=== PATIENT | female | born 1995 | race African-American/Black ===

== ENCOUNTER 2016-10-23 16:06 | Emergency (ER) | payer BC, OTHER ==
[~2016-10-23] VITALS: Ht 170.2 cm; Wt 90.7 kg
[~2016-10-23 16:06] MED LIST: NORCO 5-325 TA1 EACH PO
[2016-10-23 16:40] LABS: URINE BILIRUBIN NEGATIVE (Negative); URINE BLOOD NEGATIVE (Negative); URINE COLOR YELLOW; URINE GLUCOSE-RANDOM* NEGATIVE (Negative); URINE KETONES NEGATIVE (Negative); URINE NITRITE NEGATIVE (Negative); URINE PROTEIN (DIPSTICK) NEGATIVE (Negative)
[2016-10-23 19:02] VITALS: BP 157/94
[2016-10-24 17:09] LABS: CHLAMYDIA TRACHOMATIS-PCR Positive (Negative); NEISSERIA GONORRHEA-PCR Negative (Negative)
== END 2016-10-23 19:04 | disposition home or self-care (01) ==
LOC: ER 16:06
PROVIDERS: Physician Assistant
DX: O20.0 Threatened abortion (principal); Z3A.00 Weeks of gestation of pregnancy not specified

== ENCOUNTER 2017-05-03 00:52 | Emergency (ER) | payer BC, OTHER ==
[~2017-05-03] VITALS: Ht 170.2 cm; Wt 99.8 kg
--- NOTE | ~2017-05-03 | EKG ---
[address] [address] ELECTROCARDIOGRAM REPORT Name: RODNEY VAN [id number] Admission: 05/03/17 Attend Phys: Discharge: 05/03/17 Date of : [birth year] Report #: [id number] THIS REPORT FOR: //name// [facility] ED Test Date: 2017-05-03 Test Time: 01:09:56 Pat Name: RODNEY VAN Department: Room: Gender: F Jack Prizer: BRAEDEN : 1995 Requested By: Michael Strong Order Number: [id number] MD: Gus Islas Measurements Intervals [place] Rate: 156 P: 72 ND: 92 QRS: 68 QRSD: 73 T: -29 QT: 308 QTc: 496 Interpretive Statements Sinus tachycardia Consider right atrial enlargement Borderline T abnormalities, inferior leads Baseline wander in lead(s) V1 No previous ECG available for comparison Electronically Signed On 05-03-2017 9:59:11 SWAGE TENDER by Gus Islas [email or web address] <ELECTRONICALLY SIGNED> By: Gus Islas MD 05/03/17 0959 010 010 Gus Islas MD /SEAN
[~2017-05-03 00:52] MED LIST changes: +KEFLEX500 M1 PO; +PRENATAL TABLE1 EAC2 PO
[2017-05-03] MEDS ORDERED: KEFLEX500 M1 PO (03:22)
[2017-05-03 04:09] LABS: HEMOGLOBIN 11.7 gm/dL (12.0-15.0); MCH 26.4 pg (26.0-34.0); MCHC 32.6 g/dL (28.0-37.0); MCV 81.1 fL (80.0-100.0); RBC 4.44 mil/uL (4.20-5.00); RDW 15.5 % (10.5-14.5); WBC 11.8 thou/uL (4.0-11.0)
[2017-05-03 04:12] LABS: CALCIUM 9.6 mg/dL (8.5-10.1); CREATININE 0.7 mg/dL (0.6-1.0); POTASSIUM 4.1 mmol/L (3.5-5.1)
[2017-05-03 05:27] VITALS: BP 136/90
== END 2017-05-03 05:29 ==
LOC: ER 00:52
PROVIDERS: Emergency Medicine
DX: O98.813 Other maternal infectious and parasitic diseases complicating pregnancy, third trimester (principal); A41.9 Sepsis, unspecified organism; N76.4 Abscess of vulva; Z3A.32 32 weeks gestation of pregnancy

== ENCOUNTER 2018-02-23 18:34 | Emergency (ER) | payer BC, OTHER ==
[~2018-02-23] VITALS: Ht 170.2 cm; Wt 98.0 kg
[2018-02-23] MEDS ORDERED: IBUPROFEN 200200 M1 PO (18:55)
[2018-02-23 19:15] LABS: ABSOLUTE NEUTROPHILS 5.4 thou/uL (1.4-8.2); BASOPHILS 0.5 % (0.0-2.0); EOSINOPHILS 0.5 % (0.0-3.0); HEMATOCRIT 40.3 % (37.0-47.0); HEMOGLOBIN 13.7 gm/dL (12.0-15.0); MCH 26.8 pg (26.0-34.0); MCV 78.8 fL (80.0-100.0); MONOCYTES 3.9 % (1.0-8.0); PLATELET COUNT 302 thou/uL (150-400); POLYS 78.1 % (36.0-66.0); RBC 5.11 mil/uL (4.20-5.00); RDW 14.8 % (10.5-14.5); WBC 6.9 thou/uL (4.0-11.0)
[2018-02-23 19:25] LABS: CALCIUM 9.5 mg/dL (8.5-10.1); POTASSIUM 3.6 mmol/L (3.5-5.1)
[2018-02-23 19:31] LABS: ALBUMIN 3.8 g/dL (3.4-5.0); TOTAL BILIRUBIN 0.9 mg/dL (<0.1-1.0); TOTAL PROTEIN 8.6 g/dL (6.4-8.2)
[2018-02-23] MEDS ORDERED: ONDANSETRON HCL4 M2 PO (19:41)
[2018-02-23 19:56] VITALS: BP 127/97
== END 2018-02-23 20:21 | disposition home or self-care (01) ==
LOC: ER 18:34
PROVIDERS: Emergency Medicine
DX: R11.2 Nausea with vomiting, unspecified (principal); R51 Headache; R53.83 Other fatigue

== ENCOUNTER 2018-06-01 21:48 | Emergency (ER) | payer BC, OTHER ==
[~2018-06-01] VITALS: Ht 170.2 cm; Wt 98.0 kg
[~2018-06-01 21:48] MED LIST changes: +IBUPROFEN 200200 M1 PO; +ONDANSETRON HCL4 M2 PO
[2018-06-01 21:50] VITALS: BP 154/82
[2018-06-01] MEDS ORDERED: DIPHENHIST50 MG PO (22:28)
== END 2018-06-01 22:47 | disposition home or self-care (01) ==
LOC: ER 21:48
DX: L50.9 Urticaria, unspecified (principal)

== ENCOUNTER 2018-07-04 09:01 | Emergency (ER) | payer BC, OTHER ==
[~2018-07-04] VITALS: Ht 170.2 cm; Wt 90.7 kg
[~2018-07-04 09:01] MED LIST changes: +DIPHENHIST50 MG PO
[2018-07-04 09:02] VITALS: BP 130/97
[2018-07-04 09:18] LABS: URINE BILIRUBIN NEGATIVE (Negative); URINE BLOOD 1+ (Negative); URINE CLARITY CLEAR; URINE COLOR YELLOW; URINE GLUCOSE-RANDOM* 3+ (Negative); URINE KETONES 2+ (Negative); URINE LEUKOCYTES-REFLEX TRACE (Negative); URINE NITRITE-REFLEX NEGATIVE (Negative); URINE PROTEIN (DIPSTICK) 2+ (Negative); URINE SPECIFIC GRAVITY >= 1.030 (1.005-1.035); URINE UROBILINOGEN 0.2 E.U./dl (0.2-1.0)
[2018-07-04 09:29] LABS: CASTS None Seen /LPF (None Seen); SQUAMOUS >10 Many /LPF (0-3)
[2018-07-04 09:30] LABS: AMORPHOUS URATES Moderate /LPF (None Seen); BACTERIA-REFLEX None Seen /HPF (None Seen); URINE RBC 3-10 Few /HPF (0-2)
[2018-07-04] MEDS ORDERED: DIFLUCAN150 M1 PO (09:42)
== END 2018-07-04 09:53 | disposition home or self-care (01) ==
LOC: ER 09:01
PROVIDERS: Emergency Medicine
DX: B37.3 Candidiasis of vulva and vagina (principal)

== ENCOUNTER 2018-07-14 16:29 | Inpatient (IN) | payer BC, OTHER ==
[2018-07-14] VITALS (21 sets, daily range): BP systolic 114–151; BP diastolic 67–93
[~2018-07-14] VITALS: Ht 170.2 cm; Wt 92.5 kg
[~2018-07-14 16:29] MED LIST changes: +DIFLUCAN150 M1 PO
[2018-07-14 16:44] LABS: URINE BLOOD TRACE (Negative); URINE CLARITY CLEAR; URINE COLOR YELLOW; URINE GLUCOSE-RANDOM* 3+ (Negative); URINE KETONES 3+ (Negative); URINE LEUKOCYTES NEGATIVE (Negative); URINE NITRITE NEGATIVE (Negative); URINE PROTEIN (DIPSTICK) 2+ (Negative); URINE SPECIFIC GRAVITY >= 1.030 (1.005-1.035); URINE UROBILINOGEN 0.2 E.U./dl (0.2-1.0)
[2018-07-14 16:45] LABS: ICTOTEST (BILI CONFIRMATORY) Negative (Negative); URINE BILIRUBIN NEGATIVE (Negative)
[2018-07-14 16:53] LABS: CASTS None Seen /LPF (None Seen); CRYSTALS None Seen /LPF (None Seen); SQUAMOUS 4-10 Moderate /LPF (0-3)
[2018-07-14 16:54] LABS: YEAST Present (None Seen)
[2018-07-14 17:00] LABS: URINE RBC 0-2 Rare /HPF (0-2); URINE WBC 0-5 Rare /HPF (0-5)
[2018-07-14 17:04] LABS: ABSOLUTE NEUTROPHILS 3.1 thou/uL (1.4-8.2); BASOPHILS 0.8 % (0.0-2.0); HEMATOCRIT 50.7 % (37.0-47.0); HEMOGLOBIN 17.4 gm/dL (12.0-15.0); MCH 27.1 pg (26.0-34.0); MCHC 34.2 g/dL (28.0-37.0); MCV 79.1 fL (80.0-100.0); MONOCYTES 8.6 % (1.0-8.0); PLATELET COUNT 340 thou/uL (150-400); POLYS 39.6 % (36.0-66.0); RBC 6.41 mil/uL (4.20-5.00); RDW 15.4 % (10.5-14.5); WBC 7.8 thou/uL (4.0-11.0)
[2018-07-14 17:21] LABS: CALCIUM 9.9 mg/dL (8.5-10.1); CREATININE 0.9 mg/dL (0.6-1.0); POTASSIUM 3.9 mmol/L (3.5-5.1)
[2018-07-14 17:25] LABS: ALBUMIN 3.9 g/dL (3.4-5.0); TOTAL BILIRUBIN 1.2 mg/dL (<0.1-1.0); TOTAL PROTEIN 8.2 g/dL (6.4-8.2)
--- NOTE | 2018-07-14 19:36 | NUR ---
PT ARRIVED AT 1950 FROM ED VIA STRETCHER IN STABLE CONDITION. PT PLACED ON TELEMETRY AND ORIENTED TO UNIT. WILL ADMIT PT TO UNIT.
[2018-07-14] MEDS ORDERED: IBUPROFEN 400400 M2 PO (20:16)
[2018-07-14 20:22] LABS: MAGNESIUM 1.5 mg/dL (1.8-2.4); PHOSPHORUS 2.5 mg/dL (2.5-4.9)
[2018-07-14 20:23] LABS: ALBUMIN 3.1 g/dL (3.4-5.0); CALCIUM 8.1 mg/dL (8.5-10.1); CREATININE 0.8 mg/dL (0.6-1.0); PHOSPHORUS 2.5 mg/dL (2.5-4.9); POTASSIUM 3.3 mmol/L (3.5-5.1)
[2018-07-15] VITALS (24 sets, daily range): BP systolic 104–169; BP diastolic 55–108
[2018-07-15 00:41] LABS: ALBUMIN 3.1 g/dL (3.4-5.0); CALCIUM 7.7 mg/dL (8.5-10.1); CREATININE 0.7 mg/dL (0.6-1.0); MAGNESIUM 1.9 mg/dL (1.8-2.4); PHOSPHORUS 1.6 mg/dL (2.5-4.9); POTASSIUM 3.8 mmol/L (3.5-5.1)
[2018-07-15 04:53] LABS: ALBUMIN 2.9 g/dL (3.4-5.0); CALCIUM 7.5 mg/dL (8.5-10.1); CREATININE 0.7 mg/dL (0.6-1.0); MAGNESIUM 1.8 mg/dL (1.8-2.4); PHOSPHORUS 2.3 mg/dL (2.5-4.9); POTASSIUM 3.8 mmol/L (3.5-5.1)
--- NOTE | 2018-07-15 06:23 | NUR ---
PT CURRENTLY RESTING IN BED. PT HAD NO C/O PAIN THROUGHOUT SHIFT. PT SR ON MONITOR WITH OCCASIONAL 1ST DEGREE AND PVCs. PT RA ON MONITOR BUT HAS MOMENTS OF DESAT TO 88% BUT POPS BACK UP LIKE SLEEP APNEA. PT CONTINUES ON INSULIN GTT PER PROTOCOL AND NEXT RENAL AND MAG CHECK IS 0800. PT UP STANDBY TO TOILET.
[2018-07-15 08:22] LABS: CHOLESTEROL 142 mg/dL (<200); HDL CHOLESTEROL 22 mg/dL (>40); LDL CHOLESTEROL 100 mg/dL (<100); TC:HDL 6.5 Ratio (Not establshd); TRIGLYCERIDE 102 mg/dL (<150); VLDL 20 mg/dL (<40)
[2018-07-15 08:24] LABS: SERUM ASSESSMENT Clear
[2018-07-15 10:40] LABS: CREATININE 0.6 mg/dL (0.6-1.0); POTASSIUM 3.6 mmol/L (3.5-5.1)
[2018-07-15 11:54] LABS: CALCIUM 7.9 mg/dL (8.5-10.1); CREATININE 0.5 mg/dL (0.6-1.0); MAGNESIUM 1.6 mg/dL (1.8-2.4); PHOSPHORUS 1.7 mg/dL (2.5-4.9); POTASSIUM 3.3 mmol/L (3.5-5.1)
--- NOTE | 2018-07-15 12:41 | NUR ---
CM ASSESSMENT: CASE OPENED FOR DC PLANNING, NURSES STATE VERBALIZATION OF SPOUSAL ABUSE. PT ADMITTED THRU ER AND DX WITH NEW DM, DKA. CLINICAL INFO REVIEWED, MET WITH PT. PT LIVES WITH SPOUSE JAM[place] IN [place] AND THEY HAVE 14 MONTH SON. PT IS INDEPENDENT WITH ADLS, NO CURRENTLY WORKING. PT REPORTS PHYSICAL AND VERBAL SPOUSAL ABUSE ABOUT A MONTH AGO, AT WHICH TIME PT CALLED POLICE AFTER PT HAD LEFT FOR WORK AND OBTAINED A RESTRAINING ORDER. PT [facility], BUT ULTIMATELY WORKED THINGS OUT WITH SPOUSE. PT DECISION TO HAVE SPOUSE RETURN HOME AND LIFTED RESTRAINING ORDER 2 DAYS AGO. PT INDICATES SHE FEELS SAFE RETURNING HOME WITH SPOUSE AT DISCHARGE. SPOUSE IS CARING FOR SON AT PRESENT. VERIFIED PT HAS [facility] CONTACT NUMBER. PT WITHOUT PCP AND ENCOURAGED HER TO GO TO [facility]REFERRED [facility] TO CHOOSE IN NETWORK PCP AND [employer] DEVELOPER OPTIONS. ALSO PROVIDED RESOURCES FOR [facility] OFFICES OF [facility] AND [facility]. WILL FOLLOW.
--- NOTE | 2018-07-15 16:36 | EKG ---
[address] [address] ELECTROCARDIOGRAM REPORT Name: RODNEY SANTIAGO Room #: 243-P ADM IN M.R.#: [id number] ������������������ Admission: 07/14/18 ������������������ Attend Phys: Crescencio Oviedo MD Discharge: ������������������ Date of : [birth year] Report #: [id number] ����������������������������������������������������������������� [id number] THIS REPORT FOR: //name// [facility] ED Test Date: 2018-07-14 Test Time: 16:51:06 Pat Name: RODNEY SANTIAGO Department: Room: [facility] Gender: F Timber Watchman: YAYA : 1995 Requested By: Smith Luong Order Number: [id number] MD: Gus Islas Measurements Intervals [place] Rate: 126 P: 88 [place]: 155 QRS: 96 QRSD: 67 T: 51 QT: 288 QTc: 417 Interpretive Statements Sinus tachycardia Borderline right axis deviation Compared to ECG 05/03/2017 01:09:56 T-wave abnormality no longer present Electronically Signed On 07-15-2018 16:36:15 MANUAL TESTER by Gus Islas [email or web address] ��������������������������������������������� <ELECTRONICALLY SIGNED> ���������������������������������������� By: Gus Islas MD ��������������������������������������������� 07/15/18 1636 165 165 Gus Islas MD /EPI
[2018-07-15 17:17] LABS: ALBUMIN 2.8 g/dL (3.4-5.0); CALCIUM 8.1 mg/dL (8.5-10.1); CREATININE 0.7 mg/dL (0.6-1.0); MAGNESIUM 1.8 mg/dL (1.8-2.4); PHOSPHORUS 1.4 mg/dL (2.5-4.9); POTASSIUM 3.6 mmol/L (3.5-5.1)
--- NOTE | 2018-07-15 17:34 | NUR ---
PT IS ALERT AND ORIENTED X4. PT IS ON A INUSLIN DRIP. [facility] INVOLVED AND MANAGING BLOOD SUGARS. PT IS IN THE ICU. LUNGS ARE CLEAR. SINUS TACHYCARDIA ON MONITOR. BOWEL SOUNDS ACITVE. EATTING A 1600 BRIANNA DIET. TOLERATING WELL. WILL CONTINUE TO MANAGE DRIP AND INSULIN PER DR. RASMUSSEN. DR. MADRID SAW PT TODAY AND ROUNDED ON PT. PT DIDNT TOLERATE IV POTASSIUM SO PO ORDERED AND GIVEN TO PT IN REPLACEMENT. WILL CONTINUE TO ASSESS AND MONITOR PER NURSING. UP TO BEDSIDE AND BATH DONE AT SINK .
[2018-07-16] VITALS (14 sets, daily range): BP systolic 106–162; BP diastolic 50–111
[2018-07-16 01:06] LABS: GLYCOHEMOGLOBIN (HGB A1C) 11.5 % (4.8-5.6)
--- NOTE | 2018-07-16 03:30 | NUR ---
PT IS PROGRESSING WITH DKA PROTOCOL UNDER . BS HAVE BEEN IMPROVING SINCE CHANGING TO 1/2 NS. PT STILL IN HOURLY BS CHECKS WITH 0300 AM CHECK UNDER 100. INSULIN DRIP ON HOLD UNTIL PT'S BS IS OVER 150 WHICH THEN DRIP CAN BE RESTARTED. DR. RASMUSSEN ORDERS TO CALL WITH BS AND UPDATE PT STATUS TO HIM THIS AM @730 AND NOON & 1700 CALL HIM VIKY FOR BS/INSULIN ORDERS. ASSESSMENT CHARTED. CALL LIGHT IN REACH. CONTINUE WITH PLAN OF CARE.
[2018-07-16 06:11] LABS: ABSOLUTE NEUTROPHILS 2.5 thou/uL (1.4-8.2); BASOPHILS 0.8 % (0.0-2.0); EOSINOPHILS 2.8 % (0.0-3.0); HEMATOCRIT 38.6 % (37.0-47.0); LYMPHOCYTES 46.3 % (24.0-44.0); MCH 26.6 pg (26.0-34.0); MCHC 33.9 g/dL (28.0-37.0); MCV 78.5 fL (80.0-100.0); POLYS 41.1 % (36.0-66.0); RBC 4.92 mil/uL (4.20-5.00); RDW 15.2 % (10.5-14.5); WBC 6.2 thou/uL (4.0-11.0)
[2018-07-16 06:13] LABS: HEMOGLOBIN 13.1 gm/dL (12.0-15.0); PLATELET COUNT 232 thou/uL (150-400)
[2018-07-16 08:03] LABS: ALBUMIN 2.9 g/dL (3.4-5.0); CALCIUM 8.5 mg/dL (8.5-10.1); CREATININE 0.6 mg/dL (0.6-1.0); PHOSPHORUS 3.1 mg/dL (2.5-4.9); POTASSIUM 3.3 mmol/L (3.5-5.1); TOTAL BILIRUBIN 1.9 mg/dL (<0.1-1.0); TOTAL PROTEIN 6.2 g/dL (6.4-8.2)
--- NOTE | 2018-07-16 10:04 | NUR ---
ASSUMED CARE OF PT AT APPROX 0700. PT IS ALERT AND ORIENTED X4, MONITORED ON TELE AND ABLE TO MAINTAIN 02 SAT >90 ON RA. PT REMAINS ON INSULIN GTT AT SHIFT CHANGE. DANIELLE WAS DC'D BY HOSPITALIST. CALLED DR RASMUSSEN TO MAKE AWARE, STATED OK, GAVE ORDER FOR ONE TIME INSULIN DOSE AND TO REMAIN WITH CALLS QID WITH ALL INSULIN CHECKS. RECIEVED ORDER FOR TRANSER TO M/S UNIT. BED CALLED, REPORT CALLED TO RECIEVING RN. PT UPDATED ON POC, AND COMMUNICATES UNDERSTANDING. WILL CONTINUE TO MONITOR.
--- NOTE | 2018-07-16 13:15 | NUR ---
RECIEVED CALL FROM DR RASMUSSEN ABOUT PATIENT THIS NURSE LET HIM KNOW THAT DR MADRID WAS GOING TO MANAGE BLOOD SUGARS AND S/S INSULINTHAT HIS ANSWERING SERVICE WAS CALLED AROUND 11:00 MESSAGE LEFT.
--- NOTE | 2018-07-16 14:34 | HC ---
[facility] [address] [place] [address] CONSULTATION Name: RODNEY SANTIAGO Room #: 417-I ADM IN Mauro#: [id number] Admission: 07/14/18 ������������������ Attend Phys: Crescencio Oviedo MD Discharge: ������������������ Date of : [birth year] Report #: [id number] THIS REPORT FOR: //name// CC: [facility] physician/PCP Crescencio Oviedo ENDOCRINE CONSULTATION Patient of Dr. Oviedo's, [facility] ICU. SUBJECTIVE: A 23-year-old black female admitted for new onset diabetes mellitus and associated complaints. The patient is a relatively poor historian. She states she was diagnosed with gestational diabetes during a recent , which ended 14 months ago. The patient was treated with diet control alone. She is to receive no diabetes care or interventions since that time and has had no medical evaluation. She has not monitored her glucose and has no information regarding glucose control, etc. Several weeks ago, she developed polyuria and polydipsia. Over the past 24 hours prior to admission, she developed fatigue, weakness and presented to the Emergency Room where she was found to be in early ketoacidosis with moderate hyperglycemia. She was begun on limited fluids and IV insulin as well as glucose and potassium supplementation. The patient denies any recent infections, trauma, corticosteroids or other precipitating factors. Otherwise, her limited available history is essentially as per prior dictations. OBJECTIVE: LABORATORY DATA: Hemoglobin A1c is pending. Glucoses are as per charts. Potassium and phosphorus are diminished, but being repleted. PHYSICAL EXAMINATION: GENERAL: Well-nourished, well-developed, obese 23-year-old black female in no acute distress. NEUROLOGIC: The patient is alert and oriented x 3. VITAL SIGNS: She is afebrile, heart rate 93 and regular, blood pressure 130/80. Height is reported to be 5 feet 7 inches, weight approximately 210 pounds. SKIN: Warm and moist with decreased turgor. The remainder of the exam is essentially within normal limits and as per prior notes. IMPRESSION: 1. New onset diabetes, out of control with ketoacidosis. The patient had gestational diabetes over 1 year ago with no subsequent medical evaluation and might have been hyperglycemic continuously since that time. 2. Severe dehydration with hypokalemia and hypophosphatemia. PLAN: 1. We will evaluate prior controlled hemoglobin A1c and monitor endogenous insulin secretion with C-peptide; however, this could be suppressed by acute glucose toxicity. [address] [address] CONSULTATION Name: RODNEY SANTIAGO Room #: 417-I [facility] IN M.Anne.#: [id number] Admission: 07/14/18 ������������������ Attend Phys: Crescencio Oviedo MD Discharge: ������������������ Date of : [birth year] Report #: [id number] 2. We will institute vigorous hydration. Meanwhile, we will taper glucose infusion as the patient is able to return to oral feeding on an appropriate caloric restriction diet. The patient will receive instruction in that diet and will need full outpatient diabetes education after dismissal. 3. We will initiate subQ insulin as the patient initiates oral intake and we will gradually wean the patient off of frequent monitoring and IV insulin as possible. Meanwhile, we will monitor and replace potassium, phosphorus and other parameters as needed. Thank you very much for this consultation. I will continue to follow and treat with you for diabetes management. ��������������������������������������������� <ELECTRONICALLY SIGNED> ���������������������������������������� By: Oleg De Santiago MD ��������������������������������������������� 07/16/18 1434 1959 0121 Oleg De Santiago MD /nt
--- NOTE | 2018-07-16 19:28 | NUR ---
PT AND HER BELONGINGS MOVED TO ROOM 356. REPORT GIVEN TO GUERDA HER NOC NURSE.
--- NOTE | 2018-07-17 04:52 | NUR ---
ASSUMED CARE OF PATIENT AT 1900. VSS, AFEBRILE. DIABETES EDUCATION GIVEN, WILL NEED MORE. UP AD HUSSAIN TO BATHROOM, CONCERNCED ABOUT CONSTIPATION. COLACE ORDERED AND GIVEN. STATES IV IS IRRITATING HER. NEW ONE STARTED IN LEFT AC. MONITORING BLOOD SUGARS, PROGRESSING TOWARDS POC GOALS.
[2018-07-17] MEDS ORDERED: FLUCONAZOLE 10100 MG PO (11:04)
[2018-07-17] MEDS ORDERED: FLORANEX GRANU1 EACH PO (11:04)
[2018-07-17] MEDS ORDERED: METRONIDAZOLE500 M4 PO (11:04)
[2018-07-17] MEDS ORDERED: LEVAQUIN 500 M500 M1 PO (11:04)
[2018-07-17] MEDS ORDERED: K-DUR 20 MEQ T20 MEQ PO (11:04)
[2018-07-17] MEDS ORDERED: NOVOLOG100 UNIT/1 SUBQ (11:04)
[2018-07-17] MEDS ORDERED: COLACE 100 MG100 MG PO (11:04)
[2018-07-17 12:29] VITALS: BP 133/88
[2018-07-17 12:33] VITALS: BP 133/88
[2018-07-17 13:33] VITALS: BP 133/88
[2018-07-17 13:37] VITALS: BP 133/88
[2018-07-17 13:38] VITALS: BP 133/88
[2018-07-17 13:52] VITALS: BP 133/88
--- NOTE | 2018-07-17 15:01 | NUR ---
PT INSTRUCTIONS GIVEN REGARDING BLOOD SUGAR TESTING AND INSULIN ADMINISTRATION. WILL PURCHASE A GLUCOMETER TODAY AND FELIX [facility]HU WILL FOLLOW UP TOMORROW..ADVISED TO MAKE APPOINTMENT VIKY ESCALANTE/AIDA FOR PCP AND DR RASMUSSEN FOR ADMINISTRATIVE RECEPTIONIST..
== END 2018-07-17 15:11 | disposition home health service (06) | DRG 638 ==
LOC: ER 16:29 → EROBS 17:55 → ICU 17:55 → 4E 07-16 10:14 → 3W 07-16 19:08
PROVIDERS: Emergency Medicine; ADMIT Internal Medicine
DX: E10.10 Type 1 diabetes mellitus with ketoacidosis without coma (principal); N39.0 Urinary tract infection, site not specified; B37.9 Candidiasis, unspecified; A59.9 Trichomoniasis, unspecified; E66.9 Obesity, unspecified; I10 Essential (primary) hypertension; E10.65 Type 1 diabetes mellitus with hyperglycemia; E86.0 Dehydration; E87.6 Hypokalemia; E83.39 Other disorders of phosphorus metabolism; Z68.31 Body mass index [BMI] 31.0-31.9, adult; Z91.19 Patient's noncompliance with other medical treatment and regimen; Z83.3 Family history of diabetes mellitus
CPT/HCPCS: 10078; 10203; 10779

== ENCOUNTER 2018-08-04 13:28 | Emergency (ER) | payer BC, OTHER ==
[~2018-08-04] VITALS: Ht 170.2 cm; Wt 95.3 kg
--- NOTE | ~2018-08-04 | EKG ---
[address] [address] ELECTROCARDIOGRAM REPORT Name: RODNEY SANTIAGO Room #: [facility] M.R.#: [id number] ������������������ Admission: ������������������ Attend Phys: Discharge: ������������������ Date of : [birth year] Report #: [id number] ����������������������������������������������������������������� [id number] THIS REPORT FOR: //name// [facility] ED Test Date: 2018-08-04 Test Time: 13:37:15 Pat Name: RODNEY SANTIAGO Department: Room: Gender: F Technical Writer: RONAK : 1995 Requested By: Halley Ingram Order Number: [id number] MD: Measurements Intervals [place] Rate: 130 P: 73 [place]: 126 QRS: 81 QRSD: 75 T: 74 QT: 412 QTc: 606 Interpretive Statements Sinus tachycardia LAE, consider biatrial enlargement Prolonged QT interval Compared to ECG 07/14/2018 16:51:06 Prolonged QT interval now present [email or web address] ��������������������������������������������� ���������������������������������������� By: ��������������������������������������������� 36 1337 Maximo Marsh MD /EPI
[~2018-08-04 13:28] MED LIST changes: +COLACE 100 MG100 MG PO; +FLORANEX GRANU1 EACH PO; +FLUCONAZOLE 10100 MG PO; +IBUPROFEN 400400 M2 PO; +K-DUR 20 MEQ T20 MEQ PO; +LEVAQUIN 500 M500 M1 PO; +METRONIDAZOLE500 M4 PO; +NOVOLOG100 UNIT/1 SUBQ
[2018-08-04 13:57] LABS: BASOPHILS 0.7 % (0.0-2.0); EOSINOPHILS 2.2 % (0.0-3.0); HEMATOCRIT 43.2 % (37.0-47.0); HEMOGLOBIN 14.5 gm/dL (12.0-15.0); LYMPHOCYTES 47.3 % (24.0-44.0); MCH 27.1 pg (26.0-34.0); MCHC 33.6 g/dL (28.0-37.0); MCV 80.8 fL (80.0-100.0); MONOCYTES 6.3 % (1.0-8.0); PLATELET COUNT 269 thou/uL (150-400); POLYS 43.5 % (36.0-66.0); RBC 5.34 mil/uL (4.20-5.00); RDW 15.8 % (10.5-14.5); WBC 4.6 thou/uL (4.0-11.0)
[2018-08-04 14:05] LABS: ANION GAP 13 mmol/L (7-16); BUN 12 mg/dL (7-18); CALCIUM 9.3 mg/dL (8.5-10.1); CHLORIDE 98 mmol/L (98-107); CO2 22 mmol/L (21-32); CREATININE 0.8 mg/dL (0.6-1.0); GLUCOSE 247 mg/dL (74-106); SODIUM 133 mmol/L (136-145)
[2018-08-04 14:14] LABS: ALBUMIN 3.7 g/dL (3.4-5.0); SGOT 16 U/L (15-37); SGPT 27 U/L (30-65); TOTAL BILIRUBIN 1.3 mg/dL (<0.1-1.0); TROPONIN-I <0.06 ng/mL (<0.06)
[2018-08-04] MEDS ORDERED: MOBIC7.5 MG PO (15:35)
[2018-08-04 15:46] VITALS: BP 124/84
--- NOTE | 2018-08-05 07:50 | EKG ---
[address] [address] ELECTROCARDIOGRAM REPORT Name: RODNEY SANTIAGO [facility] [id number] ������������������ Admission: 08/04/18 ������������������ Attend Phys: Discharge: 08/04/18 ������������������ Date of : [birth year] Report #: [id number] ����������������������������������������������������������������� [id number] THIS REPORT FOR: //name// [facility] ED Test Date: 2018-08-04 Test Time: 16:01:50 Pat Name: RODNEY SANTIAGO Department: Room: Gender: F Top Edge Beveler: Anne WADE : 1995 Requested By: Halley Ingram Order Number: [id number] MD: Will Mason Measurements Intervals [place] Rate: 82 P: 88 [place]: 141 QRS: 75 QRSD: 69 T: 56 QT: 362 QTc: 423 Interpretive Statements Sinus rhythm Normal tracing Compared to ECG 07/14/2018 16:51:06 Sinus tachycardia no longer present Electronically Signed On 08-05-2018 7:50:15 CDT by Will Mason [email or web address] ��������������������������������������������� <ELECTRONICALLY SIGNED> ���������������������������������������� By: Will Mason MD, [facility] ��������������������������������������������� 08/05/18 0750 1601 160 Will Mason MD, FACC /EPI
== END 2018-08-04 15:50 | disposition home or self-care (01) ==
LOC: ER 13:28
PROVIDERS: Student in an Organized Health Care Education/Training Program
DX: R07.89 Other chest pain (principal)

== ENCOUNTER 2018-10-17 16:08 | Emergency (ER) | payer OTHER ==
[~2018-10-17] VITALS: Ht 167.6 cm; Wt 95.3 kg
[~2018-10-17 16:08] MED LIST changes: +MOBIC7.5 MG PO
[2018-10-17] MEDS ORDERED: NOVOLOG100 UNIT/1 SUBQ (16:13)
[2018-10-17] MEDS ORDERED: MOBIC7.5 MG PO (17:34)
[2018-10-17 17:47] VITALS: BP 147/88
== END 2018-10-17 17:43 | disposition home or self-care (01) ==
LOC: ER 16:08
DX: M25.561 Pain in right knee (principal)

== ENCOUNTER 2018-10-26 16:02 | Emergency (ER) | payer OTHER ==
[~2018-10-26] VITALS: Ht 167.6 cm; Wt 95.3 kg
[2018-10-26 16:27] LABS: URINE BILIRUBIN NEGATIVE (Negative); URINE BLOOD NEGATIVE (Negative); URINE CLARITY SL CLOUDY; URINE COLOR YELLOW; URINE GLUCOSE-RANDOM* 2+ (Negative); URINE KETONES NEGATIVE (Negative); URINE LEUKOCYTES-REFLEX 1+ (Negative); URINE NITRITE-REFLEX NEGATIVE (Negative); URINE PROTEIN (DIPSTICK) 1+ (Negative); URINE UROBILINOGEN 0.2 E.U./dl (0.2-1.0)
[2018-10-26 16:41] LABS: ABSOLUTE NEUTROPHILS 3.8 thou/uL (1.4-8.2); BASOPHILS 0.9 % (0.0-2.0); HEMATOCRIT 39.6 % (37.0-47.0); HEMOGLOBIN 13.2 gm/dL (12.0-15.0); LYMPHOCYTES 33.8 % (24.0-44.0); MCH 26.8 pg (26.0-34.0); MCHC 33.2 g/dL (28.0-37.0); MCV 80.6 fL (80.0-100.0); MONOCYTES 9.2 % (1.0-8.0); PLATELET COUNT 296 thou/uL (150-400); POLYS 53.1 % (36.0-66.0); RBC 4.91 mil/uL (4.20-5.00); RDW 14.8 % (10.5-14.5); WBC 7.2 thou/uL (4.0-11.0)
[2018-10-26 16:44] LABS: SQUAMOUS >10 Many /LPF (0-3)
[2018-10-26 16:45] LABS: CASTS None Seen /LPF (None Seen); URINE RBC 0-2 Rare /HPF (0-2); URINE WBC-REFLEX 6-15 Few /HPF (0-5)
[2018-10-26 16:46] LABS: CRYSTALS None Seen /LPF (None Seen); MUCUS 0-3 Light strn/LPF (None Seen)
[2018-10-26 17:00] LABS: ALBUMIN 3.6 g/dL (3.4-5.0); CALCIUM 9.2 mg/dL (8.5-10.1); CREATININE 0.7 mg/dL (0.6-1.0); POTASSIUM 3.8 mmol/L (3.5-5.1); TOTAL BILIRUBIN 0.7 mg/dL (<0.1-1.0)
[2018-10-26] MEDS ORDERED: MOBIC7.5 MG PO (18:42)
[2018-10-26] MEDS ORDERED: KEFLEX500 M1 PO (18:42)
[2018-10-26] MEDS ORDERED: ONDANSETRON HCL4 M2 PO (18:43)
[2018-10-26 18:50] VITALS: BP 134/87
== END 2018-10-26 18:50 | disposition home or self-care (01) ==
LOC: ER 16:02
PROVIDERS: Physician Assistant
DX: N39.0 Urinary tract infection, site not specified (principal); I88.0 Nonspecific mesenteric lymphadenitis; E11.9 Type 2 diabetes mellitus without complications; Z79.4 Long term (current) use of insulin

== ENCOUNTER 2019-01-14 17:31 | Emergency (ER) | payer OTHER ==
[~2019-01-14] VITALS: Ht 170.2 cm; Wt 97.5 kg
[2019-01-14 18:05] LABS: URINE BILIRUBIN NEGATIVE (Negative); URINE BLOOD NEGATIVE (Negative); URINE CLARITY CLEAR; URINE COLOR YELLOW; URINE GLUCOSE-RANDOM* NEGATIVE (Negative); URINE KETONES NEGATIVE (Negative); URINE LEUKOCYTES-REFLEX TRACE (Negative); URINE NITRITE-REFLEX NEGATIVE (Negative); URINE PROTEIN (DIPSTICK) TRACE (Negative); URINE SPECIFIC GRAVITY 1.015 (1.005-1.035); URINE UROBILINOGEN 0.2 E.U./dl (0.2-1.0)
[2019-01-14 19:45] LABS: ABSOLUTE NEUTROPHILS 11.6 thou/uL (1.4-8.2); BASOPHILS 0.5 % (0.0-2.0); EOSINOPHILS 0.5 % (0.0-3.0); HEMATOCRIT 42.6 % (37.0-47.0); HEMOGLOBIN 13.9 gm/dL (12.0-15.0); LYMPHOCYTES 14.1 % (24.0-44.0); MCH 26.9 pg (26.0-34.0); MCHC 32.7 g/dL (28.0-37.0); MCV 82.3 fL (80.0-100.0); MONOCYTES 5.7 % (1.0-8.0); POLYS 79.2 % (36.0-66.0); RBC 5.18 mil/uL (4.20-5.00); RDW 14.6 % (10.5-14.5); WBC 15.8 thou/uL (4.0-11.0)
[2019-01-14 19:52] LABS: CALCIUM 10.4 mg/dL (8.5-10.1); CREATININE 0.9 mg/dL (0.6-1.0); POTASSIUM 4.4 mmol/L (3.5-5.1)
[2019-01-14 20:24] LABS: PLATELET COUNT 266 thou/uL (150-400)
[2019-01-14 22:04] VITALS: BP 103/60
--- NOTE | 2019-01-16 11:40 | EKG ---
[address] [address] ELECTROCARDIOGRAM REPORT Name: RODNEY SANTIAGO [facility] [id number] Admission: 01/14/19 Attend Phys: Discharge: 01/14/19 Date of : [birth year] Report #: [id number] THIS REPORT FOR: //name// [facility] ED Test Date: 2019-01-14 Test Time: 17:39:19 Pat Name: RODNEY SANTIAGO Department: Room: Gender: F Clinical Appeals Specialist: LUCY : 1995 Requested By: Reed Rodríguez Order Number: [id number] MD: Gus Islas Measurements Intervals [place] Rate: 133 P: 87 [place]: 110 QRS: 80 QRSD: 166 T: 54 QT: 411 QTc: 612 Interpretive Statements Sinus tachycardia Probable left atrial enlargement Right bundle branch block Compared to ECG 08/04/2018 16:01:50 Right bundle-branch block now present Sinus rhythm no longer present Electronically Signed On 01-16-2019 11:40:14 CDT by Gus Islas [email or web address] <ELECTRONICALLY SIGNED> By: Gus Islas MD 01/16/19 1140 1739 1739 Gus Islas MD /EPI
== END 2019-01-14 22:05 | disposition home or self-care (01) ==
LOC: ER 17:31
PROVIDERS: Emergency Medicine
DX: J32.9 Chronic sinusitis, unspecified (principal); R50.9 Fever, unspecified; I10 Essential (primary) hypertension

== ENCOUNTER 2019-02-20 14:24 | Emergency (ER) | payer OTHER ==
[~2019-02-20] VITALS: Ht 170.2 cm; Wt 95.3 kg
[2019-02-20 14:59] LABS: ABSOLUTE NEUTROPHILS 3.5 thou/uL (1.4-8.2); BASOPHILS 0.6 % (0.0-2.0); EOSINOPHILS 2.5 % (0.0-3.0); HEMATOCRIT 41.2 % (37.0-47.0); HEMOGLOBIN 13.5 gm/dL (12.0-15.0); LYMPHOCYTES 36.9 % (24.0-44.0); MCH 26.9 pg (26.0-34.0); MCHC 32.7 g/dL (28.0-37.0); MCV 82.2 fL (80.0-100.0); MONOCYTES 4.6 % (1.0-8.0); PLATELET COUNT 323 thou/uL (150-400); POLYS 55.4 % (36.0-66.0); RBC 5.01 mil/uL (4.20-5.00); RDW 14.6 % (10.5-14.5); WBC 6.4 thou/uL (4.0-11.0)
[2019-02-20 15:07] LABS: CALCIUM 9.5 mg/dL (8.5-10.1); CREATININE 0.9 mg/dL (0.6-1.0); POTASSIUM 3.6 mmol/L (3.5-5.1)
[2019-02-20] MEDS ORDERED: BUTALB-APAP-CA1 EACH PO (16:13)
[2019-02-20 16:25] VITALS: BP 152/92
== END 2019-02-20 16:25 | disposition home or self-care (01) ==
LOC: ER 14:24
PROVIDERS: Nurse Practitioner Family
DX: R51 Headache (principal); H53.143 Visual discomfort, bilateral

== ENCOUNTER 2019-11-02 09:51 | Emergency (ER) | payer OTHER ==
[~2019-11-02] VITALS: Ht 170.2 cm; Wt 97.5 kg
[~2019-11-02 09:51] MED LIST changes: +BUTALB-APAP-CA1 EACH PO
[2019-11-02 10:24] LABS: ABSOLUTE NEUTROPHILS 2.6 thou/uL (1.4-8.2); BASOPHILS 1.2 % (0.0-2.0); EOSINOPHILS 3.9 % (0.0-3.0); HEMATOCRIT 40.1 % (37.0-47.0); HEMOGLOBIN 13.4 gm/dL (12.0-15.0); LYMPHOCYTES 41.3 % (24.0-44.0); MCH 27.6 pg (26.0-34.0); MCHC 33.4 g/dL (28.0-37.0); MCV 82.6 fL (80.0-100.0); MONOCYTES 6.7 % (1.0-8.0); PLATELET COUNT 293 thou/uL (150-400); POLYS 46.9 % (36.0-66.0); RBC 4.86 mil/uL (4.20-5.00); RDW 14.5 % (10.5-14.5); WBC 5.5 thou/uL (4.0-11.0)
[2019-11-02 10:34] LABS: ANION GAP 7 mmol/L (7-16); BUN 16 mg/dL (7-18); CHLORIDE 99 mmol/L (98-107); CO2 26 mmol/L (21-32); CREATININE 0.9 mg/dL (0.6-1.0); GLUCOSE 257 mg/dL (74-106); SODIUM 132 mmol/L (136-145)
[2019-11-02 10:43] LABS: ALBUMIN 3.6 g/dL (3.4-5.0); SGOT 20 U/L (15-37); SGPT 31 U/L (30-65); TOTAL BILIRUBIN 0.6 mg/dL (0.2-1.0); TOTAL PROTEIN 7.7 g/dL (6.4-8.2); TROPONIN-I <0.06 ng/mL (<0.06)
[2019-11-02] MEDS ORDERED: REGLAN 5 MG TAB5 MG PO (14:18)
[2019-11-02 14:28] VITALS: BP 128/87
--- NOTE | 2019-11-02 16:08 | EKG ---
[facility] [place] [address] ELECTROCARDIOGRAM REPORT Name: RODNEY SANTIAGO [facility] [id number] Admission: 11/02/19 Attend Phys: Discharge: 11/02/19 Date of : [birth year] Report #: [id number] THIS REPORT FOR: cc: JERRI - Lillie family physician/PCP JERRI - Lillie family physician/PCP Will Mason MD [facility] THIS REPORT FOR: //name// [facility] ED Test Date: 2019-11-02 Test Time: 09:56:23 Pat Name: RODNEY SANTIAGO Department: Room: Gender: F Commercial Sales Manager: : 1995 Requested By: Viri Joshi Order Number: [id number] MD: Will Mason Measurements Intervals [place] Rate: 88 P: 72 [place]: 193 QRS: 62 QRSD: 71 T: 16 QT: 342 QTc: 414 Interpretive Statements Sinus arrhythmia Multiple ventricular premature complexes Compared to ECG 01/14/2019 17:39:19 Ventricular premature complex(es) now present Sinus tachycardia no longer present Electronically Signed On 11-02-2019 16:06:56 CDT by Will Mason [email or web address] <ELECTRONICALLY SIGNED> By: Will Mason MD, [facility] 11/02/19 1606 0956 0956 Will Mason MD, [facility] /EPI
== END 2019-11-02 14:28 | disposition home or self-care (01) ==
LOC: ER 09:51
PROVIDERS: Emergency Medicine
DX: S16.1XXA Strain of muscle, fascia and tendon at neck level, initial encounter (principal); M94.0 Chondrocostal junction syndrome [Tietze]; R51 Headache; R20.0 Anesthesia of skin; R20.2 Paresthesia of skin; M54.9 Dorsalgia, unspecified; E11.9 Type 2 diabetes mellitus without complications; X58.XXXA Exposure to other specified factors, initial encounter; Y93.89 Activity, other specified; Y92.89 Other specified places as the place of occurrence of the external cause; Y99.8 Other external cause status

== ENCOUNTER 2020-01-17 16:19 | Emergency (ER) | payer OTHER ==
[~2020-01-17] VITALS: Ht 170.2 cm; Wt 97.5 kg
[~2020-01-17 16:19] MED LIST changes: +REGLAN 5 MG TAB5 MG PO
[2020-01-17] MEDS ORDERED: METFORMIN HCL500 M3 PO (17:12)
[2020-01-17] MEDS ORDERED: ATIVAN0.5 M1 PO (17:18)
[2020-01-17 19:12] VITALS: BP 111/65
== END 2020-01-17 19:13 | disposition home or self-care (01) ==
LOC: ER 16:19
DX: F41.1 Generalized anxiety disorder (principal); F43.0 Acute stress reaction; R20.0 Anesthesia of skin; E11.9 Type 2 diabetes mellitus without complications; Z79.899 Other long term (current) drug therapy

== ENCOUNTER 2020-05-08 18:58 | Emergency (ER) | payer OTHER ==
[~2020-05-08] VITALS: Ht 170.2 cm; Wt 97.5 kg
[~2020-05-08 18:58] MED LIST changes: +ATIVAN0.5 M1 PO; +METFORMIN HCL500 M3 PO
[2020-05-08 19:29] LABS: ABSOLUTE NEUTROPHILS 3.8 thou/uL (1.4-8.2); BASOPHILS 0.5 % (0.0-2.0); EOSINOPHILS 1.4 % (0.0-3.0); HEMATOCRIT 39.2 % (37.0-47.0); HEMOGLOBIN 12.7 gm/dL (12.0-15.0); LYMPHOCYTES 42.4 % (24.0-44.0); MCHC 32.5 g/dL (28.0-37.0); MONOCYTES 5.9 % (1.0-8.0); PLATELET COUNT 312 thou/uL (150-400); POLYS 49.8 % (36.0-66.0); RBC 4.72 mil/uL (4.20-5.00); RDW 14.5 % (10.5-14.5); WBC 7.6 thou/uL (4.0-11.0)
[2020-05-08 19:38] LABS: CREATININE 0.8 mg/dL (0.6-1.0); POTASSIUM 3.7 mmol/L (3.5-5.1)
[2020-05-08 21:14] VITALS: BP 133/81
[2020-05-10] MEDS ORDERED: SUPRAX400 M1 PO (08:27)
[2020-05-10] MEDS ORDERED: AZITHROMYCIN500 MG PO (08:27)
== END 2020-05-08 21:15 | disposition home or self-care (01) ==
LOC: ER 18:58
PROVIDERS: Emergency Medicine
DX: N93.9 Abnormal uterine and vaginal bleeding, unspecified (principal); R10.2 Pelvic and perineal pain; E11.9 Type 2 diabetes mellitus without complications; Z79.899 Other long term (current) drug therapy

== ENCOUNTER 2020-10-05 19:36 | Emergency (ER) | payer OTHER ==
[~2020-10-05] VITALS: Ht 200.7 cm; Wt 99.8 kg
[~2020-10-05 19:36] MED LIST changes: +AZITHROMYCIN500 MG PO; +SUPRAX400 M1 PO
[2020-10-05] MEDS ORDERED: HUMALOG100 UNIT/1 SUBQ (19:44)
[2020-10-05] MEDS ORDERED: LANTUS SUBQ (19:44)
[2020-10-05 20:04] LABS: URINE BLOOD NEGATIVE (Negative); URINE COLOR YELLOW; URINE GLUCOSE-RANDOM* TRACE (Negative); URINE KETONES 2+ (Negative); URINE LEUKOCYTES-REFLEX NEGATIVE (Negative); URINE NITRITE-REFLEX NEGATIVE (Negative); URINE PROTEIN (DIPSTICK) 1+ (Negative); URINE SPECIFIC GRAVITY >= 1.030 (1.005-1.035)
[2020-10-05 20:05] LABS: URINE BILIRUBIN NEGATIVE (Negative)
[2020-10-05 20:06] LABS: ICTOTEST (BILI CONFIRMATORY) Negative (Negative); URINE CLARITY HAZY
[2020-10-05 20:09] LABS: SQUAMOUS >10 Many /LPF (0-3); URINE WBC-REFLEX 0-5 Rare /HPF (0-5)
[2020-10-05 20:10] LABS: BACTERIA-REFLEX >30 Many /HPF (None Seen); CASTS None Seen /LPF (None Seen); CRYSTALS None Seen /LPF (None Seen); MUCUS 4-6 Moderate strn/LPF (None Seen); URINE RBC None Seen /HPF (NONE SEEN)
[2020-10-05 20:18] LABS: ABSOLUTE NEUTROPHILS 2.9 thou/uL (1.4-8.2); BASOPHILS 0.7 % (0.0-2.0); EOSINOPHILS 1.4 % (0.0-3.0); HEMATOCRIT 39.4 % (37.0-47.0); HEMOGLOBIN 12.9 gm/dL (12.0-15.0); LYMPHOCYTES 31.3 % (24.0-44.0); MCH 26.7 pg (26.0-34.0); MCHC 32.7 g/dL (28.0-37.0); MCV 81.6 fL (80.0-100.0); MONOCYTES 7.7 % (1.0-8.0); PLATELET COUNT 258 thou/uL (150-400); POLYS 58.9 % (36.0-66.0); RBC 4.83 mil/uL (4.20-5.00); RDW 14.3 % (10.5-14.5); WBC 4.9 thou/uL (4.0-11.0)
[2020-10-05 20:26] LABS: CALCIUM 8.8 mg/dL (8.5-10.1); CREATININE 0.7 mg/dL (0.6-1.0); POTASSIUM 3.4 mmol/L (3.5-5.1)
[2020-10-05 20:32] LABS: ALBUMIN 3.2 g/dL (3.4-5.0); TOTAL BILIRUBIN 1.2 mg/dL (0.2-1.0)
[2020-10-05] MEDS ORDERED: PHENERGAN 25 MG25 MG PO (21:07)
[2020-10-05 22:04] VITALS: BP 97/57
== END 2020-10-05 22:05 | disposition home or self-care (01) ==
LOC: ER 19:36
PROVIDERS: Nurse Practitioner Family
DX: G43.909 Migraine, unspecified, not intractable, without status migrainosus (principal); K59.00 Constipation, unspecified; R11.2 Nausea with vomiting, unspecified; E11.9 Type 2 diabetes mellitus without complications; Z79.899 Other long term (current) drug therapy; Z79.4 Long term (current) use of insulin

== ENCOUNTER 2020-10-19 08:52 | Emergency (ER) | payer OTHER ==
[~2020-10-19] VITALS: Ht 170.2 cm; Wt 99.8 kg
[~2020-10-19 08:52] MED LIST changes: +HUMALOG100 UNIT/1 SUBQ; +LANTUS SUBQ; +PHENERGAN 25 MG25 MG PO
[2020-10-19] MEDS ORDERED: ZYRTEC10 M4 PO (09:19)
[2020-10-19] MEDS ORDERED: PREDNISONE 20 M20 M1 PO (10:19)
[2020-10-19] MEDS ORDERED: BENADRYL25 MG PO (10:19)
[2020-10-19 10:39] VITALS: BP 131/81
== END 2020-10-19 10:39 | disposition home or self-care (01) ==
LOC: ER 08:52
DX: R21 Rash and other nonspecific skin eruption (principal); T78.40XA Allergy, unspecified, initial encounter; E11.9 Type 2 diabetes mellitus without complications; Y92.89 Other specified places as the place of occurrence of the external cause

== ENCOUNTER 2020-10-23 10:48 | Emergency (ER) | payer OTHER ==
[~2020-10-23] VITALS: Ht 170.2 cm; Wt 99.8 kg
[~2020-10-23 10:48] MED LIST changes: +BENADRYL25 MG PO; +PREDNISONE 20 M20 M1 PO; +ZYRTEC10 M4 PO
[2020-10-23 11:18] LABS: URINE BILIRUBIN NEGATIVE (Negative); URINE BLOOD 2+ (Negative); URINE CLARITY CLEAR; URINE COLOR YELLOW; URINE GLUCOSE-RANDOM* 3+ (Negative); URINE KETONES 3+ (Negative); URINE LEUKOCYTES-REFLEX NEGATIVE (Negative); URINE NITRITE-REFLEX NEGATIVE (Negative); URINE PROTEIN (DIPSTICK) NEGATIVE (Negative); URINE UROBILINOGEN 0.2 E.U./dl (0.2-1.0)
[2020-10-23 11:44] LABS: CASTS None Seen /LPF (None Seen)
[2020-10-23 11:45] LABS: BACTERIA-REFLEX 1-9 Few /HPF (None Seen); CRYSTALS None Seen /LPF (None Seen); SQUAMOUS 0-3 Few /LPF (0-3); URINE RBC 1-2 Rare /HPF (NONE SEEN); URINE WBC-REFLEX 0-5 Rare /HPF (0-5)
[2020-10-23 12:03] LABS: ABSOLUTE NEUTROPHILS 3.2 thou/uL (1.4-8.2); BASOPHILS 1.2 % (0.0-2.0); EOSINOPHILS 1.6 % (0.0-3.0); HEMATOCRIT 40.3 % (37.0-47.0); HEMOGLOBIN 13.2 gm/dL (12.0-15.0); LYMPHOCYTES 39.6 % (24.0-44.0); MCH 26.7 pg (26.0-34.0); MCHC 32.8 g/dL (28.0-37.0); MCV 81.4 fL (80.0-100.0); MONOCYTES 6.5 % (1.0-8.0); PLATELET COUNT 248 thou/uL (150-400); POLYS 51.1 % (36.0-66.0); RBC 4.95 mil/uL (4.20-5.00); RDW 14.3 % (10.5-14.5); WBC 6.3 thou/uL (4.0-11.0)
[2020-10-23 12:12] LABS: CALCIUM 9.2 mg/dL (8.5-10.1); CREATININE 0.8 mg/dL (0.6-1.0); POTASSIUM 4.1 mmol/L (3.5-5.1)
[2020-10-23 12:18] LABS: ALBUMIN 3.4 g/dL (3.4-5.0); TOTAL BILIRUBIN 0.8 mg/dL (0.2-1.0); TOTAL PROTEIN 7.3 g/dL (6.4-8.2)
[2020-10-23 12:20] LABS: TROPONIN-I <0.06 ng/mL (<0.06)
--- NOTE | 2020-10-23 13:45 | EKG ---
[place] [address] [address] [facility] [place] [address] ELECTROCARDIOGRAM REPORT Name: RODNEY SANTIAGO Room #: [facility]#: [id number] Admission: 10/23/20 Attend Phys: Discharge: Date of : [birth year] Report #: [id number] [facility] ED Test Date: 2020-10-23 Test Time: 12:28:12 Pat Name: RODNEY SANTIAGO Department: Room: Gender: F Egg Trayer: samson : 1995 Requested By: [place] Order Number: [id number] MD: Ang Edgar Measurements Intervals [place] Rate: 71 P: 69 [place]: 158 QRS: 60 QRSD: 80 T: 39 QT: 385 QTc: 419 Interpretive Statements Sinus rhythm Baseline wander in lead(s) V1 Compared to ECG 11/02/2019 09:56:23 Sinus arrhythmia no longer present Ventricular premature complex(es) no longer present Electronically Signed On 10-23-2020 13:45:20 CDT by Ang Edgar [email or web address] <ELECTRONICALLY SIGNED> By: Ang Edgar MD, [facility] 10/23/20 1345 1228 1228 Ang Edgar MD, FAC /EPI
[2020-10-23 15:19] VITALS: BP 127/81
== END 2020-10-23 15:19 | disposition home or self-care (01) ==
LOC: ER 10:48
PROVIDERS: Physician Assistant
DX: E11.65 Type 2 diabetes mellitus with hyperglycemia (principal); E86.0 Dehydration

== ENCOUNTER 2020-11-04 01:24 | Emergency (ER) | payer OTHER ==
[~2020-11-04] VITALS: Ht 170.2 cm; Wt 99.8 kg
[2020-11-04] MEDS ORDERED: HYDROXYZINE HCL10 M2 PO (01:32)
[2020-11-04 03:20] VITALS: BP 142/88
--- NOTE | 2020-11-05 07:22 | EKG ---
[address] [address] ELECTROCARDIOGRAM REPORT Name: RODNEY SANTIAGO [facility]: [facility] [id number] Admission: 11/04/20 Attend Phys: Discharge: 11/04/20 Date of : [birth year] Report #: [id number] [facility] ED Test Date: 2020-11-04 Test Time: 01:39:44 Pat Name: RODNEY SANTIAGO Department: Room: Gender: F Tool Filer Hand: baldomero : 1995 Requested By: Jon De Jesus Order Number: [id number] : Ang Edgar Measurements Intervals [place] Rate: 120 P: 69 [place]: 156 QRS: 56 QRSD: 70 T: 27 QT: 296 QTc: 419 Interpretive Statements Sinus tachycardia Compared to ECG 10/23/2020 12:28:12 Sinus rhythm no longer present Electronically Signed On 11-05-2020 7:22:00 CDT by Ang Edgar [email or web address] <ELECTRONICALLY SIGNED> By: Ang Edgar MD, [facility] 11/05/20 0722 0139 0139 Ang Edgar MD, FACC /EPI
== END 2020-11-04 03:24 | disposition home or self-care (01) ==
LOC: ER 01:24
DX: F41.9 Anxiety disorder, unspecified (principal); E11.9 Type 2 diabetes mellitus without complications; Z79.899 Other long term (current) drug therapy

== ENCOUNTER 2020-11-05 10:30 | Inpatient (IN) | payer OTHER ==
[~2020-11-05] VITALS: Ht 170.2 cm; Wt 95.2 kg
[2020-11-05] VITALS (15 sets, daily range): BP systolic 113–144; BP diastolic 59–96
[~2020-11-05 10:30] MED LIST changes: +HYDROXYZINE HCL10 M2 PO
[2020-11-05 10:47] LABS: ABSOLUTE NEUTROPHILS 3.5 thou/uL (1.4-8.2); BASOPHILS 0.8 % (0.0-2.0); EOSINOPHILS 1.3 % (0.0-3.0); HEMATOCRIT 44.3 % (37.0-47.0); HEMOGLOBIN 14.5 gm/dL (12.0-15.0); LYMPHOCYTES 29.5 % (24.0-44.0); MCH 27.3 pg (26.0-34.0); MCHC 32.7 g/dL (28.0-37.0); MCV 83.3 fL (80.0-100.0); PLATELET COUNT 261 thou/uL (150-400); POLYS 62.4 % (36.0-66.0); RBC 5.31 mil/uL (4.20-5.00); RDW 15.2 % (10.5-14.5); WBC 5.7 thou/uL (4.0-11.0)
[2020-11-05 11:11] LABS: ALBUMIN 3.5 g/dL (3.4-5.0); ANION GAP 18 mmol/L (7-16); BUN 12 mg/dL (7-18); CALCIUM 9.1 mg/dL (8.5-10.1); CHLORIDE 94 mmol/L (98-107); CO2 18 mmol/L (21-32); CREATININE 1.1 mg/dL (0.6-1.0); LIPASE 136 U/L (73-393); POTASSIUM 4.7 mmol/L (3.5-5.1); SGOT 22 U/L (15-37); SGPT 29 U/L (30-65); SODIUM 130 mmol/L (136-145); TOTAL BILIRUBIN 1.2 mg/dL (0.2-1.0); TOTAL PROTEIN 7.9 g/dL (6.4-8.2); TROPONIN-I <0.06 ng/mL (<0.06)
[2020-11-05 11:16] LABS: URINE BILIRUBIN NEGATIVE (Negative); URINE BLOOD NEGATIVE (Negative); URINE CLARITY CLEAR; URINE COLOR YELLOW; URINE GLUCOSE-RANDOM* 3+ (Negative); URINE KETONES 3+ (Negative); URINE LEUKOCYTES-REFLEX NEGATIVE (Negative); URINE NITRITE-REFLEX NEGATIVE (Negative); URINE PROTEIN (DIPSTICK) NEGATIVE (Negative); URINE SPECIFIC GRAVITY 1.015 (1.005-1.035); URINE UROBILINOGEN 0.2 E.U./dl (0.2-1.0)
[2020-11-05 11:18] LABS: GLUCOSE 681 mg/dL (74-106)
[2020-11-05 12:28] LABS: MAGNESIUM 1.8 mg/dL (1.8-2.4); PHOSPHORUS 3.7 mg/dL (2.6-4.7)
[2020-11-05 12:32] LABS: ALBUMIN 2.9 g/dL (3.4-5.0); CALCIUM 8.1 mg/dL (8.5-10.1); PHOSPHORUS 3.8 mg/dL (2.6-4.7); POTASSIUM 4.7 mmol/L (3.5-5.1)
--- NOTE | 2020-11-05 14:34 | EKG ---
[address] [address] ELECTROCARDIOGRAM REPORT Name: RODNEY SANTIAGO Room #: [facility]- ADM IN M.R.#: [id number] Admission: 11/05/20 Attend Phys: Tiera Pond MD Discharge: Date of : [birth year] Report #: [id number] [facility] ED Test Date: 2020-11-05 Test Time: 10:38:33 Pat Name: RODNEY SANTIAGO Department: Room: 243 Gender: F Window Installer: LEXIE : 1995 Requested By: Jared Eastman Order Number: [id number] MD: Ang Edgar Measurements Intervals [place] Rate: 114 P: 69 [place]: 163 QRS: 57 QRSD: 72 T: 36 QT: 320 QTc: 441 Interpretive Statements Sinus tachycardia Compared to ECG 11/04/2020 01:39:44 No significant changes Electronically Signed On 11-05-2020 14:33:51 CDT by Ang Edgar [email or web address] <ELECTRONICALLY SIGNED> By: Ang Edgar MD, [facility] 11/05/20 1433 1038 Deena Edgar MD, FACC /EPI
--- NOTE | 2020-11-05 15:19 | NUR ---
PATIENT ADMITTED TO ICU FROM E.D THIS AFTERNOON. ALERT AND ORIENTED AND VITALS STABLE. BLOOD GLUCOSE OBTAINED FROM LAB AND INSULIN GTT INITIATED SHORTLY AFTER ARRIVAL TO ICU. ADMISSION HISTORY AND ASSESSMENT COMPLETED. PATIENT DENIES PAIN AT THIS TIME. CARE PLAN INITIATED. BELONGINGS IDENTIFIED AND DOCUMENTED. WILL CONTINUE TO FOLLOW DKA PROTOCOL.
[2020-11-05 16:33] LABS: CALCIUM 8.1 mg/dL (8.5-10.1); CREATININE 0.8 mg/dL (0.6-1.0); PHOSPHORUS 1.9 mg/dL (2.6-4.7)
[2020-11-05 16:34] LABS: POTASSIUM 3.4 mmol/L (3.5-5.1)
[2020-11-05 21:13] LABS: ALBUMIN 2.7 g/dL (3.4-5.0); CALCIUM 7.7 mg/dL (8.5-10.1); CREATININE 0.8 mg/dL (0.6-1.0); PHOSPHORUS 2.7 mg/dL (2.6-4.7); POTASSIUM 3.6 mmol/L (3.5-5.1)
--- NOTE | 2020-11-05 23:37 | NUR ---
DKA PROTOCOL AND INSULIN GTT DC'D. NO N/V,ABD PAIN, ANION GAP CLOSED. STARTED ON SS INSULIN AND LANTUS. MISAEL DIET. UP TO BSC-GAIT STEADY, STATES FEELING MUCH BETTER. REPORT GIVEN TO DARRELL PINTO
[2020-11-06] VITALS (9 sets, daily range): BP systolic 97–127; BP diastolic 55–78
[2020-11-06 03:38] LABS: ALBUMIN 2.6 g/dL (3.4-5.0); CALCIUM 7.9 mg/dL (8.5-10.1); CREATININE 0.8 mg/dL (0.6-1.0); MAGNESIUM 1.8 mg/dL (1.8-2.4); PHOSPHORUS 2.5 mg/dL (2.5-4.9); POTASSIUM 4.1 mmol/L (3.5-5.1)
--- NOTE | 2020-11-06 05:11 | NUR ---
ASSUMED PT CARE AROUND 2300. PT HAS BEEN SLEEPING MOST OF THE NIGHT. RESPIRATIONS EVEN AND UNLABORED. VSS. AFEBRILE. IVF INFUSING ORDERED. INSULIN GTT OFF. SHE HAS BEEN TRANSITIONED TO SSI AND LANTUS PER PROVIDER ORDERS. FALL PRECAUTIONS IN PLACE. PROGRESSING SLOWLY TOWARD POC GOALS. WILL CONTINUE TO MONITOR.
--- NOTE | 2020-11-06 11:24 | NUR ---
Chart review, CM consult for DM. Discussed during los, possible dc home today, ok to vouch for insulin pen needs for dc x 2 months. CM visited with patient at bedside, she is a & o x 3, and able to make her needs know. Provided her with safe net packet and goodrx discount card. She reported, live home only with 3 years old son and grandma is watching him, while she is here. ground level apartment, no steps, use insulin pen at home, Humalog, and Lantus. independent when feel well. able to care for her son. Patient reports she changed jobs and just was able to fill out insurance information at work, not active yet last insurance ended in September. PCP Dr Breana Ibarra. Will cont. following as needed. possible dc home today. No hh or rehab in the past.
== END 2020-11-06 14:58 | disposition home or self-care (01) | DRG 639 ==
LOC: ER 10:30 → EROBS 11:45 → ICU 12:18
PROVIDERS: Emergency Medicine; ADMIT Internal Medicine; ATTEND Internal Medicine
DX: E10.10 Type 1 diabetes mellitus with ketoacidosis without coma (principal); F41.9 Anxiety disorder, unspecified; J30.2 Other seasonal allergic rhinitis; Z83.3 Family history of diabetes mellitus; Z79.899 Other long term (current) drug therapy
CPT/HCPCS: 10078

== ENCOUNTER 2021-02-06 18:41 | Emergency (ER) | payer OTHER ==
[~2021-02-06] VITALS: Ht 172.7 cm; Wt 96.2 kg
[2021-02-06] MEDS ORDERED: SUMATRIPTAN SUC50 MG PO (18:45)
[2021-02-06 19:01] LABS: URINE BILIRUBIN NEGATIVE (Negative); URINE BLOOD NEGATIVE (Negative); URINE CLARITY CLEAR; URINE COLOR YELLOW; URINE GLUCOSE-RANDOM* 3+ (Negative); URINE KETONES NEGATIVE (Negative); URINE LEUKOCYTES-REFLEX NEGATIVE (Negative); URINE NITRITE-REFLEX NEGATIVE (Negative); URINE PROTEIN (DIPSTICK) 1+ (Negative); URINE SPECIFIC GRAVITY >= 1.030 (1.005-1.035); URINE UROBILINOGEN 0.2 E.U./dl (0.2-1.0)
[2021-02-06 19:16] LABS: BACTERIA-REFLEX 1-9 Few /HPF (None Seen); CASTS None Seen /LPF (None Seen); CRYSTALS None Seen /LPF (None Seen); SQUAMOUS 4-10 Moderate /LPF (0-3); URINE RBC 1-2 Rare /HPF (NONE SEEN); URINE WBC-REFLEX 0-5 Rare /HPF (0-5)
[2021-02-06 19:44] LABS: BASOPHILS 0.7 % (0.0-2.0); EOSINOPHILS 0.9 % (0.0-3.0); HEMATOCRIT 40.1 % (37.0-47.0); HEMOGLOBIN 13.8 gm/dL (12.0-15.0); LYMPHOCYTES 52.7 % (24.0-44.0); MCH 27.6 pg (26.0-34.0); MCHC 34.4 g/dL (28.0-37.0); MCV 80.5 fL (80.0-100.0); MONOCYTES 6.6 % (1.0-8.0); POLYS 39.1 % (36.0-66.0); RBC 4.98 mil/uL (4.20-5.00); RDW 14.6 % (10.5-14.5); WBC 8.6 thou/uL (4.0-11.0)
[2021-02-06 19:47] LABS: CREATININE 0.8 mg/dL (0.6-1.0); POTASSIUM 4.3 mmol/L (3.5-5.1)
[2021-02-06 19:54] LABS: ALBUMIN 3.6 g/dL (3.4-5.0); TOTAL BILIRUBIN 0.9 mg/dL (0.2-1.0)
[2021-02-06 20:42] LABS: LARGE PLATELETS FEW; PLATELET COUNT 277 thou/uL (150-400)
[2021-02-06] MEDS ORDERED: REGLAN 10 MG TA10 MG PO (20:49)
[2021-02-06 21:27] VITALS: BP 120/69
== END 2021-02-06 20:50 | disposition home or self-care (01) ==
LOC: ER 18:41
PROVIDERS: Emergency Medicine
DX: R10.10 Upper abdominal pain, unspecified (principal); R51.9 Headache, unspecified; E11.9 Type 2 diabetes mellitus without complications; F41.9 Anxiety disorder, unspecified; Z79.899 Other long term (current) drug therapy; Z79.4 Long term (current) use of insulin; Z91.09 Other allergy status, other than to drugs and biological substances

== ENCOUNTER 2021-02-12 14:54 | Emergency (ER) | payer OTHER ==
[~2021-02-12] VITALS: Ht 170.2 cm; Wt 96.2 kg
[~2021-02-12 14:54] MED LIST changes: +REGLAN 10 MG TA10 MG PO; +SUMATRIPTAN SUC50 MG PO
[2021-02-12] MEDS ORDERED: LANTUS SUBQ (15:10)
[2021-02-12 15:11] LABS: URINE BILIRUBIN NEGATIVE (Negative); URINE BLOOD NEGATIVE (Negative); URINE CLARITY CLEAR; URINE COLOR YELLOW; URINE GLUCOSE-RANDOM* 3+ (Negative); URINE KETONES NEGATIVE (Negative); URINE LEUKOCYTES-REFLEX NEGATIVE (Negative); URINE NITRITE-REFLEX NEGATIVE (Negative); URINE PROTEIN (DIPSTICK) NEGATIVE (Negative); URINE SPECIFIC GRAVITY 1.015 (1.005-1.035); URINE UROBILINOGEN 0.2 E.U./dl (0.2-1.0)
[2021-02-12] MEDS ORDERED: HUMULIN R500 UNIT/1 SUBQ (15:11)
[2021-02-12 15:23] LABS: ABSOLUTE NEUTROPHILS 2.3 thou/uL (1.4-8.2); BASOPHILS 1.2 % (0.0-2.0); EOSINOPHILS 0.8 % (0.0-3.0); HEMATOCRIT 40.3 % (37.0-47.0); HEMOGLOBIN 13.5 gm/dL (12.0-15.0); LYMPHOCYTES 53.5 % (24.0-44.0); MCH 26.9 pg (26.0-34.0); MCHC 33.6 g/dL (28.0-37.0); MCV 80.1 fL (80.0-100.0); PLATELET COUNT 295 thou/uL (150-400); POLYS 38.5 % (36.0-66.0); RBC 5.03 mil/uL (4.20-5.00); RDW 14.2 % (10.5-14.5); WBC 5.9 thou/uL (4.0-11.0)
[2021-02-12 15:42] LABS: CALCIUM 9.2 mg/dL (8.5-10.1); CREATININE 0.9 mg/dL (0.6-1.0); POTASSIUM 3.8 mmol/L (3.5-5.1)
[2021-02-12 15:46] LABS: ALBUMIN 3.8 g/dL (3.4-5.0); TOTAL BILIRUBIN 1.3 mg/dL (0.2-1.0); TOTAL PROTEIN 8.1 g/dL (6.4-8.2)
[2021-02-12] MEDS ORDERED: HUMALOG100 UNIT/1 SUBQ (16:31)
[2021-02-12 16:44] VITALS: BP 131/80
== END 2021-02-12 16:47 | disposition home or self-care (01) ==
LOC: ER 14:54
PROVIDERS: Emergency Medicine
DX: O24.911 Unspecified diabetes mellitus in pregnancy, first trimester (principal); E11.65 Type 2 diabetes mellitus with hyperglycemia; F41.9 Anxiety disorder, unspecified; Z3A.01 Less than 8 weeks gestation of pregnancy; Z79.4 Long term (current) use of insulin; Z91.09 Other allergy status, other than to drugs and biological substances

== ENCOUNTER 2021-02-25 17:32 | Emergency (ER) | payer OTHER ==
[~2021-02-25] VITALS: Ht 170.2 cm; Wt 93.0 kg
[~2021-02-25 17:32] MED LIST changes: +HUMULIN R500 UNIT/1 SUBQ
[2021-02-25 17:57] LABS: URINE BILIRUBIN NEGATIVE (Negative); URINE BLOOD NEGATIVE (Negative); URINE CLARITY CLEAR; URINE COLOR YELLOW; URINE GLUCOSE-RANDOM* 3+ (Negative); URINE KETONES 2+ (Negative); URINE LEUKOCYTES-REFLEX NEGATIVE (Negative); URINE NITRITE-REFLEX NEGATIVE (Negative); URINE PROTEIN (DIPSTICK) NEGATIVE (Negative); URINE SPECIFIC GRAVITY >= 1.030 (1.005-1.035); URINE UROBILINOGEN 0.2 E.U./dl (0.2-1.0)
[2021-02-25 19:58] VITALS: BP 123/84
== END 2021-02-25 19:58 | disposition home or self-care (01) ==
LOC: ER 17:32
PROVIDERS: Emergency Medicine
DX: O46.91 Antepartum hemorrhage, unspecified, first trimester (principal); E11.9 Type 2 diabetes mellitus without complications; F41.9 Anxiety disorder, unspecified; Z3A.01 Less than 8 weeks gestation of pregnancy; Z79.4 Long term (current) use of insulin

== ENCOUNTER 2021-03-12 13:48 | Emergency (ER) | payer OTHER ==
[~2021-03-12] VITALS: Ht 170.2 cm; Wt 93.0 kg
[2021-03-12 14:32] LABS: BASOPHILS 0.9 % (0.0-2.0); EOSINOPHILS 4.1 % (0.0-3.0); HEMATOCRIT 41.5 % (37.0-47.0); HEMOGLOBIN 13.9 gm/dL (12.0-15.0); LYMPHOCYTES 48.6 % (24.0-44.0); MCH 27.2 pg (26.0-34.0); MCHC 33.6 g/dL (28.0-37.0); MCV 80.9 fL (80.0-100.0); PLATELET COUNT 265 thou/uL (150-400); POLYS 39.4 % (36.0-66.0); RBC 5.13 mil/uL (4.20-5.00); WBC 5.1 thou/uL (4.0-11.0)
[2021-03-12 14:32] LABS: URINE BILIRUBIN NEGATIVE (Negative); URINE BLOOD NEGATIVE (Negative); URINE CLARITY CLEAR; URINE GLUCOSE-RANDOM* 3+ (Negative); URINE KETONES 3+ (Negative); URINE LEUKOCYTES-REFLEX NEGATIVE (Negative); URINE NITRITE-REFLEX NEGATIVE (Negative); URINE PROTEIN (DIPSTICK) NEGATIVE (Negative); URINE SPECIFIC GRAVITY 1.025 (1.005-1.035); URINE UROBILINOGEN 0.2 E.U./dl (0.2-1.0)
[2021-03-12 14:35] LABS: URINE COLOR YELLOW
[2021-03-12 14:44] LABS: CALCIUM 9.2 mg/dL (8.5-10.1); CREATININE 0.8 mg/dL (0.6-1.0); POTASSIUM 4.3 mmol/L (3.5-5.1)
[2021-03-12 14:50] LABS: ALBUMIN 3.8 g/dL (3.4-5.0); TOTAL BILIRUBIN 1.2 mg/dL (0.2-1.0); TOTAL PROTEIN 7.4 g/dL (6.4-8.2)
[2021-03-12 18:28] VITALS: BP 112/52
== END 2021-03-12 18:37 ==
LOC: ER 13:48
PROVIDERS: Emergency Medicine
DX: O24.111 Pre-existing type 2 diabetes mellitus, in pregnancy, first trimester (principal); R10.31 Right lower quadrant pain; R10.32 Left lower quadrant pain; E11.65 Type 2 diabetes mellitus with hyperglycemia; R10.30 Lower abdominal pain, unspecified; F41.9 Anxiety disorder, unspecified; Z3A.08 8 weeks gestation of pregnancy; Z79.4 Long term (current) use of insulin; Z91.09 Other allergy status, other than to drugs and biological substances